=== PATIENT | female | born 1985 | race Caucasian/White ===

== ENCOUNTER 2022-02-17 12:12 | Emergency (ER) | payer MEDICAID, SELFPAY ==
[2022-02-17 12:21] VITALS: BP 138/89; PULSE 131; RESP 20; TEMP 35.9; O2SAT 97; BMI 56.4
[2022-02-17 14:22] VITALS: PULSE 120; O2SAT 97
--- NOTE | 2022-02-17 14:39 | CRLHL7_ITS ---
For Patients: As a result of the Cures Act, medical imaging exams and procedure reports are released immediately into your electronic medical record. You may view this report before your referring provider. If you have questions, please contact your health care provider. Indication: Fall, Pain Comparison: None available. Technique: AP and lateral views sacrum and coccyx were obtained. Findings: There is no displaced fracture or dislocation. The sacroiliac joints are patent without significant bony ankylosis. The soft tissues are unremarkable. Impression: No acute osseus abnormality. Dictated by Ck Espinosa MD @ 02/17/2022 3:40:01 PM (Electronically Signed)
--- NOTE | 2022-02-17 14:40 | ED.BACK ---
HPI - Back Pain/Injury General Chief Complaint: Back Injury/Pain Stated Complaint: Fell yesterday, lower back/R hip pain Time Seen by Provider: 02/17/22 13:42 History of Present Illness HPI Narrative: This 36-year-old female comes in with injury to her tailbone. Prior to arrival she was stepping down her steps at home. When she reached the landing at the bottom of the steps she slipped fell onto her bottom. She was able to get up and ambulate. She did not have any other injury and did not have loss of consciousness. She complains of severe pain in her tailbone region and some into the left buttocks. She does have a history of chronic back pain and states that she is taking morphine and tramadol. Related Data Home Medications Medication Instructions Recorded Confirmed morphine 15 mg tablet,extended mg PO 02/17/22 release tramadol 50 mg tablet mg 02/17/22 Previous Rx's Medication Instructions Recorded ketorolac 10 mg tablet 10 mg PO Q8H 5 days #15 tabs 02/17/22 Allergies Allergy/AdvReac Type Severity Reaction Status Date / Time No Known Drug Allergies Allergy Verified 02/17/22 12:22 Review of Systems Status of ROS: Reports: 10 or more systems reviewed and unremarkable except as noted in History and below Narrative: Constitutional: No fevers, no weight gain or loss. Eyes: No discharge. No vision changes. HENT: No congestion, no sore throat, no ear pain. Cardiovascular: No chest pain, no palpitations. Respiratory: No shortness of breath, no wheezes, no cough. Gastrointestinal: No abdominal pain, no vomiting, no diarrhea. Genitourinary: No dysuria, no hematuria. Musculoskeletal: Low back pain which is chronic with an acute pain in her tailbone due to recent fall. Skin: No rashes, no pruritis. Neurological: No dizziness, weakness, sensory change, speech change. Endo/Heme/Allergies: No bruising or bleeding. No polydipsia. Pysch: no suicidality, no anxiety, no insomnia. All other systems reviewed and are negative. PFSH PFSH Social History Smoking Status: Former smoker How often do you have a drink containing alcohol: never How often do you have six or more drinks on one occasion: Never AUDIT-C Alcohol total score: 0 Non-prescribed substance use: denies use Exam Narrative: Exam Narrative: Constitutional: Well-developed, well-nourished, no acute distress. HEENT: Normocephalic, atraumatic. Neck: Normal range of motion. Nontender. Supple. Heart: Intact distal pulses. Lungs: No chest discomfort. No wheezes, rhonchi, or rales. Abdomen: Nontender. Back: Decreased range of motion due to pain. Increased pain localized in the region of the coccyx and sacrum. No sign of disability or swelling. Extremities: Normal range of motion. No injury. Skin: Intact. No rash. Warm. No erythema or pallor. Neurologic: No altered sensation. No weakness. Alert and oriented. Psychiatric: No suicidality. No anxiety or depression. No insomnia. Nursing notes and vitals signs are reviewed. Const: Vital Signs, click to edit/add: Vital Signs - 24 hr 02/17/22 12:21 02/17/22 14:22 02/17/22 15:10 Temperature 96.7 F L Pulse Rate [Right Pulse Oximeter] 131 H 120 H 104 H Respiratory Rate 20 36 H Blood Pressure [Ri ght Upper Arm] 138/89 Pulse Oximetry 97 97 Oxygen Delivery Me thod Room Air Room Air Course Vital Signs Vital signs: Initial Vital Signs Temperature 96.7 F L 02/17/22 12:21 Temperature Source Temporal Artery Scan 02/17/22 12:21 Pulse Rate 131 H 02/17/22 12:21 Respiratory Rate 20 02/17/22 12:21 Blood Pressure 138/89 02/17/22 12:21 Blood Pressure Mean 105 02/17/22 12:21 Blood Pressure Position Sitting 02/17/22 12:21 Pulse Oximetry 97 02/17/22 12:21 Oxygen Delivery Method 02/17/22 12:21 Vital Signs Temperature 96.7 F L 02/17/22 12:21 Pulse Rate 131 H 02/17/22 12:21 Respiratory Rate 20 02/17/22 12:21 Blood Pressure 138/89 02/17/22 12:21 Pulse Oximetry 97 02/17/22 12:21 Oxygen Delivery Method 02/17/22 12:21 Temperature 96.7 F L 02/17/22 12:21 Pulse Rate 104 H 02/17/22 15:10 Respiratory Rate 36 H 02/17/22 15:10 Blood Pressure 138/89 02/17/22 12:21 Pulse Oximetry 97 01/12/23 14:22 Oxygen Delivery Method 02/17/22 14:22 MDM - Back Pain/Injury MDM Narrative Medical decision making narrative: This patient comes in with pain in her tailbone area after a fall that occurred prior to arrival. X-ray images show no acute findings by my review. Radiology report is pending. The patient received an intramuscular injection of Toradol 30 mg. Prescription for 15 tablets of this same medicine is prescribed for her. She is okay to be discharged home. Imaging Data XR Coccyx/Sacrum: My impression: No of evidence of acute osseous injury. Discharge Plan Discharge Clinical Impression: Coccygeal contusion Patient Disposition: Home, Self-Care Condition: Unchanged Additional Instructions: Continue home medications and take prescribed medication as needed and indicated. Increase activity as tolerated. Follow up with MD or return if worsening. Prescriptions: New ketorolac 10 mg tablet 10 mg PO Q8H 5 Days Qty: 15 0RF No Action tramadol 50 mg tablet morphine 15 mg tablet extended release PO Follow Up/Referrals: Provider,Not a Local [Primary Care Provider] - Stand Alone Forms: My[facility] Info Instructions
[2022-02-17] MEDS: KETOROLAC 30 MG/ML inj IM (15:09)
[2022-02-17 15:10] VITALS: PULSE 104; RESP 36
== END 2022-02-17 15:42 | disposition home or self-care (01) ==
PROVIDERS: Emergency Provider Emergency Medicine Emergency Medical Services
DX: S30.0XXA Contusion of lower back and pelvis, initial encounter (principal); W10.9XXA Fall (on) (from) unspecified stairs and steps, initial encounter; Y92.019 Unspecified place in single-family (private) house as the place of occurrence of the external cause
CPT/HCPCS: 72220; 96372; 96374; 99284; J1885

== ENCOUNTER 2022-09-02 07:12 | Emergency (ER) | payer MEDICAID, SELFPAY ==
[2022-09-02 07:24] VITALS: BP 146/98; PULSE 120; RESP 20; TEMP 35.9; O2SAT 97; BMI 56.4
--- NOTE | 2022-09-02 08:12 | ED.GENADULT ---
HPI - General Adult General Date Seen: 09/02/22 Chief complaint: Skin/Abscess/Foreign Body Stated complaint: hot blue/black kelli on stomach Time Seen by Provider: 09/02/22 07:44 Source: patient Mode of arrival: ambulatory Limitations: no limitations History of Present Illness HPI narrative: Patient is a 36-year-old female comes in with complaints of fever that began last evening. She has a tender area on her lower abdomen that she can feel but cannot see. There has been no bleeding or drainage. She denies any injury. She does have a dog jumps up on her lap and believes that she might have been scratched. She denies any chronic health problems other than chronic back pain. She does not have a local doctor. 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 She does have a dog and a cat. The area on her abdomen that is tender she believes just started yesterday although on exam it has clearly been there much longer. She denies any history of MRSA or previous skin infections. She has been eating and drinking well. She does not use any assistive device to walk. No nausea vomiting diarrhea. No recent antibiotic use. No medication allergies. Related Data Home Medications Medication Instructions Recorded Confirmed morphine 15 mg tablet,extended 15 mg PO Q8H 02/17/22 09/02/22 release tramadol 50 mg tablet 50 mg PO Q6H 02/17/22 09/02/22 ketorolac 10 mg tablet 10 mg PO Q6H 09/02/22 09/02/22 Allergies Allergy/AdvReac Type Severity Reaction Status Date / Time No Known Drug Allergies Allergy Verified 09/02/22 07:24 Review of Systems Narrative: She takes morphine and tramadol for her chronic back pain. She does not have a local physician. Review of systems is outlined above otherwise noted to be negative. PFSH PFSH Social History Smoking Status: Former smoker Second hand tobacco smoke exposure: No How often do you have a drink containing alcohol: never How often do you have six or more drinks on one occasion: Never AUDIT-C Alcohol total score: 0 Non-prescribed substance use: denies use service: No Exam Narrative: Exam Narrative: Vitals noted. HEENT: Conjunctiva clear. Tympanic membranes are pearly white bilaterally. Posterior pharynx is clear without erythema or exudate. She is missing numerous teeth. Neck is supple without adenopathy, thyromegaly, carotid bruit. Lungs: Clear to auscultation in all araujo. No wheezes, rales, rhonchi. Heart: Regular rate and rhythm without murmur. Abdomen: Morbidly obese, Soft and nontender with the exception of the infected area. No guarding, rigidity, rebound. Bowel sounds are normal. No palpable masses. Extremities: No cyanosis or edema. Good distal pulses. Skin: There is a large area of warmth, redness, induration of her pannus. She has difficulty seeing the discoloration due to the size of her abdomen. There is purple discoloration at the center of this infection. She does have some old scratches above this area but no open areas within the infection. There is nothing that feels fluctuant but exam is challenging due to her size. Neurologic: Awake, alert, fully oriented. Neurologic exam is nonfocal. Const: Vital Signs, click to edit/add: Vital Signs - 24 hr 09/02/22 07:24 Temperature 96.7 F L Pulse Rate [Pulse Oximeter] 120 H Respiratory Rate 20 Blood Pressure [Ri t Upper Arm] 146/98 H Pulse Oximetry 97 Oxygen Delivery Me thod Room Air Course Course Hospital Course: Patient seen and examined. CBC, BMP, lactate, blood cultures, CRP are ordered. After blood cultures are drawn she is given Rocephin 2 g IV. Care is turned over to Dr. Mata. Vital Signs Vital signs: Initial Vital Signs Temperature 96.7 F L 09/02/22 07:24 Temperature Source Temporal Artery Scan 09/02/22 07:24 Pulse Rate 120 H 09/02/22 07:24 Respiratory Rate 20 09/02/22 07:24 Blood Pressure 146/98 H 09/02/22 07:24 Blood Pressure Mean 114 H 09/02/22 07:24 Blood Pressure Position Sitting 09/02/22 07:24 Pulse Oximetry 97 09/02/22 07:24 Oxygen Delivery Method Room Air 09/02/22 07:24 Vital Signs Temperature 96.7 F L 09/02/22 07:24 Pulse Rate 120 H 09/02/22 07:24 Respiratory Rate 20 09/02/22 07:24 Blood Pressure 146/98 H 09/02/22 07:24 Pulse Oximetry 97 09/02/22 07:24 Oxygen Delivery Method Room Air 09/02/22 07:24 Temperature 96.7 F L 09/02/22 07:24 Pulse Rate 120 H 09/02/22 07:24 Respiratory Rate 20 09/02/22 07:24 Blood Pressure 146/98 H 09/02/22 07:24 Pulse Oximetry 97 09/02/22 07:24 Oxygen Delivery Method Room Air 09/02/22 07:24 Discharge Plan Discharge Prescriptions: No Action tramadol 50 mg tablet 50 mg PO Q6H morphine 15 mg tablet extended release 15 mg PO Q8H ketorolac 10 mg tablet 10 mg PO Q6H Follow Up/Referrals: Provider,Not a Local [Primary Care Provider] -
[2022-09-02 08:17] LABS: Lactate* 1.2 mmol/L (0.5-1.9)
[2022-09-02 08:19] LABS: Basophils Absolute Auto 0.03 K/uL (0.00-0.30); Basophils Percent Auto 0.4 % (0.0-3.0); Eosinophils Absolute Auto 0.11 K/uL (0.00-0.50); Eosinophils Percent Auto 1.3 % (0.0-7.0); Hematocrit 45.8 % (33.0-51.0); Hemoglobin* 15.2 gm/dL (12.0-16.0); Immature Granulocytes Abs Auto 0.02 K/uL (0.00-0.30); Immature Granulocytes Pct Auto 0.2 %; Lymphocytes Percent Auto 19.8 % (20-44); Mean Corpuscular HGB Conc 33 gm/dL (32-36); Mean Corpuscular Hemoglobin 28 pg (26-34); Mean Corpuscular Volume 85 fL (80-100); Neutrophils Absolute Auto 5.61 K/uL (1.7-7.0); Neutrophils Percent Auto 68.3 % (42.0-72.0); Platelet Count* 239 K/uL (140-440); RDW Coefficient of Variation % 12.2 % (11.5-15.5); Red Blood Count 5.37 m/uL (4.00-5.20); White Blood Count* 8.22 K/uL (4.50-11.00)
[2022-09-02 08:21] LABS: Slide Review Reflex No
--- NOTE | 2022-09-02 08:32 | ED.NURSE ---
Lab in with patient for draw of second blood culture.
[2022-09-02 08:33] LABS: Chloride* 95 mmol/L (96-114); Sodium* 132 mmol/L (135-149)
[2022-09-02 08:36] LABS: Creatinine* 0.5 mg/dL (0.5-1.5); Est. Creatinine Clearance* 149.81; Estimated Glomerular Filt Rate 124 ml/min
[2022-09-02 08:37] LABS: Blood Urea Nitrogen* 8 mg/dL (5-24); Calcium* 8.9 mg/dL (8.4-10.6); Carbon Dioxide* 30 mmol/L (20-32); Glucose* 308 mg/dL (60-115)
[2022-09-02] MEDS: 0.9 % SODIUM CHLORIDE 1000 ml 1,000 ML IV (08:38)
[2022-09-02] MEDS: cefTRIAXone 2 GM in 0.9 % SODIUM CHLORIDE Mini-bag 100 ML IVPB (08:39)
[2022-09-02 08:43] VITALS: BP 142/98; PULSE 94; RESP 18; TEMP 35.6; O2SAT 96
[2022-09-02 08:57] LABS: C Reactive Protein* 18.4 mg/dL (0.5-1.0)
--- NOTE | 2022-09-02 09:02 | CRLHL7_ITS ---
For Patients: As a result of the Cures Act, medical imaging exams and procedure reports are released immediately into your electronic medical record. You may view this report before your referring provider. If you have questions, please contact your health care provider. Indication: LARGE RED PALPABLE LUMP/SWELLING, ?HEMATOMA VS ABSCESS VS OTHER Technique: Grayscale and color Doppler ultrasound of the right lower abdominal wall. Comparison: None Findings: There is a complex hypoechoic fluid collection within the right lower quadrant subcutaneous fat measuring approximately 8.5 x 5.4 x 7.5 cm. No internal vascularity. Impression: Right lower quadrant abdominal wall subcutaneous abscess measuring approximately 8.5 cm. Dictated by Anil Champion MD @ 09/02/2022 9:44:18 AM (Electronically Signed)
--- NOTE | 2022-09-02 09:10 | ED.NURSE ---
Patient to radiology for ultrasound, ambulatory.
[2022-09-02 10:43] VITALS: BP 116/77; PULSE 88; RESP 18; TEMP 36; O2SAT 97
--- NOTE | 2022-09-02 11:18 | ED_ITS ---
HPI - General Adult General Chief complaint: Skin/Abscess/Foreign Body Stated complaint: hot blue/black kelli on stomach Time Seen by Provider: 09/02/22 07:44 Source: patient Mode of arrival: ambulatory Limitations: no limitations Related Data Home Medications Medication Instructions Recorded Confirmed morphine 15 mg tablet,extended 15 mg PO Q8H 02/17/22 09/02/22 release tramadol 50 mg tablet 50 mg PO Q6H 02/17/22 09/02/22 Allergies Allergy/AdvReac Type Severity Reaction Status Date / Time No Known Drug Allergies Allergy Verified 09/02/22 07:24 [facility] Medical History (Updated 09/02/22 @ 12:55 by Haile Guy MD) Abdominal wall hernia ?K43.9 - Ventral hernia without obstruction or gangrene (ICD-10) Sleep apnea ?G47.30 - Sleep apnea, unspecified (ICD-10) Dental decay ?K02.9 - Dental caries, unspecified (ICD-10) Newly diagnosed diabetes ?E11.9 - Type 2 diabetes mellitus without complications (ICD-10) Opioid use ?F11.90 - Opioid use, unspecified, uncomplicated (ICD-10) Chronic back pain ?M54.9 - Dorsalgia, unspecified (ICD-10) ?G89.29 - Other chronic pain (ICD-10) Surgical History S/P cholecystectomy ?Z90.49 - Acquired absence of other specified parts of digestive tract (ICD- 10) History of back surgery ?Z98.890 - Other specified postprocedural states (ICD-10) S/P section ?Z98.891 - History of uterine scar from previous surgery (ICD-10) Social History (Updated 09/02/22 @ 12:44 by Haile Guy MD) Narrative: She lives at home with her 2 children, 1 age 12 and one 18. She is not currently working outside the home. Code status is full. Healthcare power of mail weigher would be her sister Maria L living in [place], [place]. She is a former smoker. She does not drink alcohol. She does not use recreational drugs. Smoking Status: Former smoker Second hand tobacco smoke exposure: No How often do you have a drink containing alcohol: never How often do you have six or more drinks on one occasion: Never AUDIT-C Alcohol total score: 0 Non-prescribed substance use: denies use service: No Exam Const: Vital Signs, click to edit/add: Vital Signs - 24 hr 09/02/22 07:24 09/02/22 08:43 09/02/22 10:43 Temperature 96.7 F L 96.1 F L 96.8 F L Pulse Rate [Pulse Oximeter] 120 H 94 88 Respiratory Rate 20 18 18 Blood Pressure [Ri ght Upper Arm] 146/98 H 142/98 H 116/77 Pulse Oximetry 97 96 97 Oxygen Delivery Me thod Room Air Room Air Room Air Course Course Hospital Course: Patient seen and examined. CBC, BMP, lactate, blood cultures, CRP are ordered. After blood cultures are drawn she is given Rocephin 2 g IV. Care is turned over to Dr. Mata. Vital Signs Vital signs: Initial Vital Signs Temperature 96.7 F L 09/02/22 07:24 Temperature Source Temporal Artery Scan 09/02/22 07:24 Pulse Rate 120 H 09/02/22 07:24 Respiratory Rate 20 09/02/22 07:24 Blood Pressure 146/98 H 09/02/22 07:24 Blood Pressure Mean 114 H 09/02/22 07:24 Blood Pressure Position Sitting 09/02/22 07:24 Pulse Oximetry 97 09/02/22 07:24 Oxygen Delivery Method Room Air 09/02/22 07:24 Vital Signs Temperature 96.7 F L 09/02/22 07:24 Pulse Rate 120 H 09/02/22 07:24 Respiratory Rate 20 09/02/22 07:24 Blood Pressure 146/98 H 09/02/22 07:24 Pulse Oximetry 97 09/02/22 07:24 Oxygen Delivery Method Room Air 09/02/22 07:24 Temperature 96.4 F L 09/02/22 19:01 Pulse Rate 85 09/02/22 19:01 Respiratory Rate 18 09/02/22 19:01 Blood Pressure 112/67 09/02/22 19:01 Pulse Oximetry 97 09/02/22 19:01 Oxygen Delivery Method Room Air 09/02/22 16:00 Medical Decision Making Lab Data Labs: Lab Results 09/02/22 Range/Units 08:05 WBC 8.22 (4.50-11.00) K/uL RBC 5.37 H (4.00-5.20) m/uL Hgb 15.2 (12.0-16.0) gm/dL Hct 45.8 (33.0-51.0) % MCV 85 (80-100) fL MCH 28 (26-34) pg MCHC 33 (32-36) gm/dL RDW Coeff of Sandro 12.2 (11.5-15.5) % Plt Count 239 (140-440) K/uL Neut % (Auto) 68.3 (42.0-72.0) % Lymph % (Auto) 19.8 L (20-44) % Jessamine % (Auto) 10.0 (0.0-11.0) % Eos % (Auto) 1.3 (0.0-7.0) % Baso % (Auto) 0.4 (0.0-3.0) % Neut # (Auto) 5.61 (1.7-7.0) K/uL Lymph # (Auto) 1.60 (0.90-2.90) K/uL Jessamine # (Auto) 0.80 (0.00-0.90) K/UL Eos # (Auto) 0.11 (0.00-0.50) K/uL Baso # (Auto) 0.03 (0.00-0.30) K/uL Abs Immat Gran (auto) 0.02 (0.00-0.30) K/uL Imm/Tot Granulo (auto) 0.2 % Sodium 132 L (135-149) mmol/L Potassium 4.0 (3.6-5.1) mmol/L Chloride 95 L (96-114) mmol/L Carbon Dioxide 30 (20-32) mmol/L BUN 8 (5-24) mg/dL Creatinine 0.5 (0.5-1.5) mg/dL Estimated Creat Clear 149.81 Estimated GFR 124 ml/min Glucose 308 H (60-115) mg/dL Lactate 1.2 (0.5-1.9) mmol/L Calcium 8.9 (8.4-10.6) mg/dL C-Reactive Protein 18.4 H (0.5-1.0) mg/dL Discharge Plan Discharge Clinical Impression: Abscess of skin or subcutaneous tissue, Cellulitis, Newly diagnosed diabetes Patient Disposition: Xfer Other Discharge Location: [facility] Condition: Stable Prescriptions: No Action tramadol 50 mg tablet 50 mg PO Q6H morphine 15 mg tablet extended release 15 mg PO Q8H Stand Alone Forms: [facility] Info Instructions
--- NOTE | 2022-09-02 11:46 | PM.GSCN ---
History of Present Illness Consult details Date Seen: 09/02/22 Consult date: 09/02/22 Narrative: The patient is a 36-year-old female who presents to the ER today with abdominal pain. States that last night she felt pain in her abdominal wall as well as a fever. She came in to be seen. She was found to have an abscess. She thinks that she might have been scratched by her dog or her CT but is not sure. She has never had anything like this previously. She denies any other symptoms such as chest pain, shortness of breath, diarrhea. She has chronic back pain for which she takes MS Contin and tramadol. She last ate yesterday but has had water this morning. Ultrasound showed a subcutaneous abscess. [facility] Medical History (Updated 09/02/22 @ 12:55 by Haile Guy MD) Abdominal wall hernia ?K43.9 - Ventral hernia without obstruction or gangrene (ICD-10) Sleep apnea ?G47.30 - Sleep apnea, unspecified (ICD-10) Dental decay ?K02.9 - Dental caries, unspecified (ICD-10) Newly diagnosed diabetes ?E11.9 - Type 2 diabetes mellitus without complications (ICD-10) Opioid use ?F11.90 - Opioid use, unspecified, uncomplicated (ICD-10) Chronic back pain ?M54.9 - Dorsalgia, unspecified (ICD-10) ?G89.29 - Other chronic pain (ICD-10) Surgical History S/P cholecystectomy ?Z90.49 - Acquired absence of other specified parts of digestive tract (ICD-10) History of back surgery ?Z98.890 - Other specified postprocedural states (ICD-10) S/P section ?Z98.891 - History of uterine scar from previous surgery (ICD-10) Social History (Updated 09/02/22 @ 12:44 by Haile Guy MD) Narrative: She lives at home with her 2 children, 1 age 12 and one 18. She is not currently working outside the home. Code status is full. Healthcare power of speech language pathologist assistant would be her sister Maria L living in [place], [place]. She is a former smoker. She does not drink alcohol. She does not use recreational drugs. Smoking Status: Former smoker Second hand tobacco smoke exposure: No How often do you have a drink containing alcohol: never How often do you have six or more drinks on one occasion: Never AUDIT-C Alcohol total score: 0 Non-prescribed substance use: denies use service: No Meds Home Medications and Allergies Home Medications Medication Instructions Recorded Confirmed Type morphine 15 mg tablet,extended 15 mg PO Q8H 02/17/22 09/02/22 History release tramadol 50 mg tablet 50 mg PO Q6H 02/17/22 09/02/22 History Allergies Allergy/AdvReac Type Severity Reaction Status Date / Time No Known Drug Allergies Allergy Verified 09/02/22 07:24 Exam Narrative: Exam Narrative: General appearance: Alert, cooperative, and in no distress Eyes: PERRLA, eye lids clear, and sclera white HENT Head: Normocephalic Ears: External ears normal Pulmonary: Breathing nonlabored on room air Cardiovascular Heart: Regular rate Gastrointestinal Abdominal: Abdomen with scars consistent with surgical history. Obese. Cellulitis extending across most of pannus. Large area of ecchymosis noted approximately 10 x 10 cm on the right lower pannus. She has a larger area of scabbing that measures approximately 7 cm x 1 cm. This is superior. Skin: Normal skin color, texture, and turgor. Neurologic: No focal deficits Psychiatric: Alert, oriented, cooperative, normal affect. Const: Vital Signs, click to edit/add: Vital Signs - 24 hr 09/02/22 07:24 09/02/22 08:43 09/02/22 10:43 Temperature 96.7 F L 96.1 F L 96.8 F L Pulse Rate [Pulse Oximeter] 120 H 94 88 Respiratory Rate 20 18 18 Blood Pressure [Ri ght Upper Arm] 146/98 H 142/98 H 116/77 Pulse Oximetry 97 96 97 Oxygen Delivery Me thod Room Air Room Air Room Air Results Labs Labs: Abnormal lab results 09/02/22 Range/Units 08:05 RBC 5.37 H (4.00-5.20) m/uL Lymph % (Auto) 19.8 L (20-44) % Sodium 132 L (135-149) mmol/L Chloride 95 L (96-114) mmol/L Glucose 308 H (60-115) mg/dL C-Reactive Protein 18.4 H (0.5-1.0) mg/dL Diabetes panel 09/02/22 Range/Units 08:05 Sodium 132 L (135-149) mmol/L Potassium 4.0 (3.6-5.1) mmol/L Chloride 95 L (96-114) mmol/L Carbon Dioxide 30 (20-32) mmol/L BUN 8 (5-24) mg/dL Creatinine 0.5 (0.5-1.5) mg/dL Glucose 308 H (60-115) mg/dL Calcium 8.9 (8.4-10.6) mg/dL Calcium panel 09/02/22 Range/Units 08:05 Calcium 8.9 (8.4-10.6) mg/dL Pituitary panel 09/02/22 Range/Units 08:05 Sodium 132 L (135-149) mmol/L Potassium 4.0 (3.6-5.1) mmol/L Chloride 95 L (96-114) mmol/L Carbon Dioxide 30 (20-32) mmol/L BUN 8 (5-24) mg/dL Creatinine 0.5 (0.5-1.5) mg/dL Glucose 308 H (60-115) mg/dL Calcium 8.9 (8.4-10.6) mg/dL Adrenal panel 09/02/22 Range/Units 08:05 Sodium 132 L (135-149) mmol/L Potassium 4.0 (3.6-5.1) mmol/L Chloride 95 L (96-114) mmol/L Carbon Dioxide 30 (20-32) mmol/L BUN 8 (5-24) mg/dL Creatinine 0.5 (0.5-1.5) mg/dL Glucose 308 H (60-115) mg/dL Calcium 8.9 (8.4-10.6) mg/dL All other labs normal. Imaging CT scan - pelvis: report reviewed and image reviewed Abdominal ultrasound report/results: report reviewed and image reviewed Additional studies: CT scan abdomen/pelvis 09/02/22 FINDINGS: The liver is normal in size with hepatic steatosis. Status post cholecystectomy. No biliary duct dilation. The spleen, adrenal glands and pancreas are within normal limits. Kidneys enhance symmetrically. Right midpole renal cyst measured 2 cm. No hydronephrosis. Unremarkable appearing bladder. No evidence of bowel obstruction. The appendix is not discretely visualized. [id number] go Large right lower abdominal wall hernia which contains a large amount of mesenteric fat, small bowel, and colon. There is no evidence of bowel obstruction or inflammation within the hernia sac. There is however overlying the hernia sac within the soft tissues a fluid collection which measures 7.9 x 5.1 x 6.0 cm. No discrete rim enhancement. There is extensive surrounding soft tissue inflammation and overlying skin thickening. No significant free fluid and no free air. Pelvic organs are unremarkable. Age indeterminate T12 compression deformity. Moderate intervertebral disc space narrowing at L3-4. Bulky anterior osteophytosis of the visualized lower thoracic spine with partial visualization of lower thoracic posterior spinal fusion. The lower chest is unremarkable. IMPRESSION: Large right lower abdominal wall hernia which contains a large amount of mesenteric fat, small bowel, and colon. There is no evidence of bowel obstruction or inflammation within the hernia sac. Overlying the hernia sac within the soft tissues of the right lower abdominal wall there is a fluid collection which measures 7.9 x 5.1 x 6.0 cm. No discrete rim enhancement. There is extensive surrounding soft tissue inflammation and overlying skin thickening. Given there is no discrete rim enhancement finding is suspicious for phlegmon although developing abscess is suspected. Surrounding inflammation and skin thickening likely related to cellulitis. Age indeterminate T12 compression deformity. Please note that all CT scans at this facility use dose modulation, iterative reconstruction, and/or weight-based dosing when appropriate to reduce radiation dose to as low as reasonably achievable. Dictated by William Bojorquez MD @ 09/02/2022 1:58:14 PM US soft tissue/abdomen Indication: LARGE RED PALPABLE LUMP/SWELLING, ?HEMATOMA VS ABSCESS VS OTHER Technique: Grayscale and color Doppler ultrasound of the right lower abdominal wall. Comparison: None Findings: There is a complex hypoechoic fluid collection within the right lower quadrant subcutaneous fat measuring approximately 8.5 x 5.4 x 7.5 cm. No internal vascularity. Impression: Right lower quadrant abdominal wall subcutaneous abscess measuring approximately 8.5 cm. Dictated by Anil Champion MD @ 09/02/2022 9:44:18 AM Assessment and Plan Assessment and plan (1) Abdominal wall hernia: Problem comment: Surgery consult Status: Acute (2) Newly diagnosed diabetes: Problem comment: Hemoglobin A1c, check blood sugars Status: Acute (3) Abscess of skin or subcutaneous tissue: Problem comment: Skin appears to have infection. Consult surgery. Likely cellulitis versus abscess. Ultrasound suggests abscess but this may be intra-abdominal bowel with a hernia Status: Acute (4) Cellulitis: Status: Acute Plan The patient is 36-year-old female with newly diagnosed diabetes, morbid obesity and a subcutaneous abscess extending down and abutting a very large abdominal wall hernia. Initially after seeing the ultrasound, I recommended surgical debridement given that the overlying skin is ischemic appearing, however CT scan done to rule out a necrotizing infection showed that the abscess extends down to her abdominal wall hernia. I think given her habitus and the size of the hernia, simply I&D of the wound could lead to a very complex surgical situation, almost patrick to an open abdomen which we would not be capable of managing here. I recommended transfer to a tertiary center where they may be able to manage the abscess in a different manner, such as with an IR drain and skin debridement only if the patient does not improve. Fortunately she was accepted at [facility] and will transfer there for further care.
--- NOTE | 2022-09-02 12:12 | CRLHL7_ITS ---
For Patients: As a result of the Century Cures Act, medical imaging exams and procedure reports are released immediately into your electronic medical record. You may view this report before your referring provider. If you have questions, please contact your health care provider. INDICATION: ABCESS, LOWER ABD RT SIDE TECHNIQUE: CT abdomen and pelvis with 150 cc Omnipaque 370 IV contrast. COMPARISON: Same day ultrasound. FINDINGS: The liver is normal in size with hepatic steatosis. Status post cholecystectomy. No biliary duct dilation. The spleen, adrenal glands and pancreas are within normal limits. Kidneys enhance symmetrically. Right midpole renal cyst measured 2 cm. No hydronephrosis. Unremarkable appearing bladder. No evidence of bowel obstruction. The appendix is not discretely visualized. [id number] go Large right lower abdominal wall hernia which contains a large amount of mesenteric fat, small bowel, and colon. There is no evidence of bowel obstruction or inflammation within the hernia sac. There is however overlying the hernia sac within the soft tissues a fluid collection which measures 7.9 x 5.1 x 6.0 cm. No discrete rim enhancement. There is extensive surrounding soft tissue inflammation and overlying skin thickening. No significant free fluid and no free air. Pelvic organs are unremarkable. Age indeterminate T12 compression deformity. Moderate intervertebral disc space narrowing at L3-4. Bulky anterior osteophytosis of the visualized lower thoracic spine with partial visualization of lower thoracic posterior spinal fusion. The lower chest is unremarkable. IMPRESSION: Large right lower abdominal wall hernia which contains a large amount of mesenteric fat, small bowel, and colon. There is no evidence of bowel obstruction or inflammation within the hernia sac. Overlying the hernia sac within the soft tissues of the right lower abdominal wall there is a fluid collection which measures 7.9 x 5.1 x 6.0 cm. No discrete rim enhancement. There is extensive surrounding soft tissue inflammation and overlying skin thickening. Given there is no discrete rim enhancement finding is suspicious for phlegmon although developing abscess is suspected. Surrounding inflammation and skin thickening likely related to cellulitis. Age indeterminate T12 compression deformity. Please note that all CT scans at this facility use dose modulation, iterative reconstruction, and/or weight-based dosing when appropriate to reduce radiation dose to as low as reasonably achievable. Dictated by William Bojorquez MD @ 09/02/2022 1:58:14 PM (Electronically Signed)
--- NOTE | 2022-09-02 12:33 | P.IMHP_ITS ---
Hospitalist- H&P: HPI History of Present Illness Date Seen: 09/02/22 Chief complaint: hot blue/black kelli on stomach Narrative: Argelia Bedoya is a 36 year old female with obesity presents with onset of abdominal pain and fever and redness in her abdominal pannus starting last night. Prior to last night she was feeling well and had no pain or fever. She she is not aware of any injury. She does have cats and dogs and does acknowledge that is possible that 1 of them scratched her in this area. She has chronic back pain and is on chronic opioid therapy with MS Contin 15 mg 3 times a day and tramadol 50 mg every 4 hours. She has been diagnosed with sleep apnea in her medical record but she tells me she does not have sleep apnea and has never been prescribed CPAP. Review of Systems Narrative: She reports she has been generally doing well until last night. No other recent trauma or illness. No previous history with problems with anesthesia, bleeding disorder, clotting problems. [facility] Medical History (Updated 09/02/22 @ 12:55 by Haile Guy MD) Abdominal wall hernia ?K43.9 - Ventral hernia without obstruction or gangrene (ICD-10) Sleep apnea ?G47.30 - Sleep apnea, unspecified (ICD-10) Dental decay ?K02.9 - Dental caries, unspecified (ICD-10) Newly diagnosed diabetes ?E11.9 - Type 2 diabetes mellitus without complications (ICD-10) Opioid use ?F11.90 - Opioid use, unspecified, uncomplicated (ICD-10) Chronic back pain ?M54.9 - Dorsalgia, unspecified (ICD-10) ?G89.29 - Other chronic pain (ICD-10) Surgical History S/P cholecystectomy ?Z90.49 - Acquired absence of other specified parts of digestive tract (ICD- 10) History of back surgery ?Z98.890 - Other specified postprocedural states (ICD-10) S/P section ?Z98.891 - History of uterine scar from previous surgery (ICD-10) Social History (Updated 09/02/22 @ 12:44 by Haile Guy MD) Narrative: She lives at home with her 2 children, 1 age 12 and one 18. She is not currently working outside the home. Code status is full. Healthcare power of electro mechanical technologist would be her sister Maria L living in [place], [place]. She is a former smoker. She does not drink alcohol. She does not use recreational drugs. Smoking Status: Former smoker Second hand tobacco smoke exposure: No How often do you have a drink containing alcohol: never How often do you have six or more drinks on one occasion: Never AUDIT-C Alcohol total score: 0 Non-prescribed substance use: denies use service: No Meds Home Medications and Allergies Home Medications Medication Instructions Recorded Confirmed Type morphine 15 mg tablet,extended 15 mg PO Q8H 02/17/22 09/02/22 History release tramadol 50 mg tablet 50 mg PO Q6H 02/17/22 09/02/22 History Allergies Allergy/AdvReac Type Severity Reaction Status Date / Time No Known Drug Allergies Allergy Verified 09/02/22 07:24 Exam Narrative: Exam Narrative: She is alert appears in no distress. Oropharynx with significant dental decay. Airway is quite small with prominent tongue. Neck is supple without mass or adenopathy. Respirations are clear to auscultation. Cardiovascular: S1, S2, regular rate and rhythm. Abdomen: Bowel sounds are present. Abdomen is soft. She has a large abdominal pannus and just to the right of the midline in her lower abdominal pannus there is an area of purplish discoloration surrounded by large area of erythema. She has mild tenderness with palpation over this area. Just above this area there is a healing skin ulcer, approximately right lateral to the umbilicus. No other obvious open or draining wounds. Lower extremities with trace edema. She has intact pedal pulses. She moves all 4 extremities well. Const: Vital Signs, click to edit/add: Vital Signs - 24 hr 09/02/22 07:24 09/02/22 08:43 09/02/22 10:43 Temperature 96.7 F L 96.1 F L 96.8 F L Pulse Rate [Pulse Oximeter] 120 H 94 88 Respiratory Rate 20 18 18 Blood Pressure [Ri ght Upper Arm] 146/98 H 142/98 H 116/77 Pulse Oximetry 97 96 97 Oxygen Delivery Me thod Room Air Room Air Room Air Documenting provider has reviewed patient's vital signs: yes Hospitalist - H&P: Result Labs Labs: Short CBC 09/02/22 Range/Units 08:05 WBC 8.22 (4.50-11.00) K/uL Hgb 15.2 (12.0-16.0) gm/dL Hct 45.8 (33.0-51.0) % Plt Count 239 (140-440) K/uL [facility] 09/02/22 08:05 Sodium 132 L Potassium 4.0 Chloride 95 L Carbon Dioxide 30 BUN 8 Creatinine 0.5 Glucose 308 H Calcium 8.9 Imaging US - abdomen: Radiologist's impression: Indication: LARGE RED PALPABLE LUMP/SWELLING, ?HEMATOMA VS ABSCESS VS OTHER Technique: Grayscale and color Doppler ultrasound of the right lower abdominal wall. Comparison: None Findings: There is a complex hypoechoic fluid collection within the right lower quadrant subcutaneous fat measuring approximately 8.5 x 5.4 x 7.5 cm. No internal vascularity. Impression: Right lower quadrant abdominal wall subcutaneous abscess measuring approximately 8.[address] scan - abdomen: Attestation: I have reviewed the pertinent imaging results. (My initial reading suggests this is a large abdominal hernia with some fat stranding around it.) Assessment and Plan Assessment and plan (1) Abscess of skin or subcutaneous tissue: Problem comment: Skin appears to have infection. Consult surgery. Likely cellulitis versus a bscess. Ultrasound suggests abscess but this may be intra-abdominal bowel with a hernia Status: Acute (2) Abdominal wall hernia: Problem comment: Surgery consult Status: Acute (3) Chronic back pain: Problem comment: On chronic opioid therapy Status: Acute Assessment and Plan: At risk for hypoventilation. (4) Newly diagnosed diabetes: Problem comment: Hemoglobin A1c, check blood sugars Status: Acute (5) Dental decay: Status: Acute (6) Sleep apnea: Problem comment: Monitor for hypoventilation. CPAP or BiPAP as needed Status: Acute Plan Pending surgical consultation will admit. If she needs surgery will probably leyva ve to be transferred. If this can be treated medically with antibiotics will admit here. Further consultation with surgery and Radiology pending Total time spent today is 80 minutes, 50 minutes in coordination of care and discussing with patient and other providers ongoing evaluation management of abdominal wall infection and hernia
[2022-09-02 16:00] VITALS: BP 135/85; PULSE 96; RESP 18; TEMP 38.6; O2SAT 95
[2022-09-02 16:14] VITALS: TEMP 38.6
[2022-09-02] MEDS: PIPERACILLIN/TAZOBACTAM 3.375 GM in 0.9 % SODIUM CHLORIDE Mini-bag 100 ML IVPB (16:14)
[2022-09-02] MEDS: ACETAMINOPHEN 500 MG TABLET 1000 MG PO (16:14)
--- NOTE | 2022-09-02 18:57 | ED.NURSE ---
Report to Araceli Nelson RN who now assumes care of patient.
[2022-09-02 19:01] VITALS: BP 112/67; PULSE 85; RESP 18; TEMP 35.8; O2SAT 97
--- NOTE | 2022-09-02 19:37 | ED.NURSE ---
Dr. Wells gave approval for pt to take her own supply of Morphine 15 mg tablet PO, one tablet; and Tramadol 50 mg tablet, one tablet PO. This financial writer verified medication labels and dosages on pt's home prescription bottles. This financial writer then witnessed pt take appropriate amount of medication with sip of water.
--- NOTE | 2022-09-02 20:20 | ED.NURSE ---
Report called to RN at [facility]. All questions answered. EMS called with request for transport. Pt to be transported to Station [address], room 807 at [facility].
[2022-09-02] MEDS: HYDROmorphone 0.5 mg/0.5 ml inj 1 MG IVP (20:50)
== END 2022-09-02 20:45 | disposition other institution (70) ==
PROVIDERS: Family Medicine; Emergency Provider Family Medicine
DX: L02.211 Cutaneous abscess of abdominal wall (principal); K46.0 Unspecified abdominal hernia with obstruction, without gangrene
CPT/HCPCS: 36415; 74177; 76705; 80048; 83605; 85025; 86140; 87040; 96365; 96366; 96375; 99282; 99285; A9270; J0696; J1170; J2543; J3370; J7030; J7120; Q9967

== ENCOUNTER 2022-09-02 20:37 | Outpatient (CLI) | payer MEDICAID, SELFPAY | END 2022-09-02 20:38 | disposition home or self-care (01) | LOC: AMB 09-05 13:58 | PROVIDERS: Visit Provider Internal Medicine | DX: R10.9 Unspecified abdominal pain (principal); R50.9 Fever, unspecified | CPT/HCPCS: A0425; A0428 ==

== ENCOUNTER 2023-05-05 17:06 | Emergency (ER) | payer MEDICAID, SELFPAY ==
[2023-05-05 17:17] VITALS: BP 148/96; PULSE 93; RESP 18; TEMP 35.9; O2SAT 99; BMI 45.8
--- NOTE | 2023-05-05 19:17 | CT_ITS ---
Patient: JEAN-PIERRE ARCE Facility:?[facility] Patient ID:?[id number] Site Patient ID:?[id number]. Site :?[id number] Study:?CT-Abdomen/Pelvis W/O-05/05/2023 8:46:58 PM Ordering Physician:CECE Final Report: INDICATION: Right flank and lower abdominal pain. TECHNIQUE: Multiplanar CT examination of the abdomen and pelvis was performed without administration of intravenous contrast. COMPARISON: None. FINDINGS: Lower chest: No focal consolidation. Normal heart size. No pleural effusions or pneumothorax. Linear band like opacification of the lung bases likely represent subsegmental atelectasis and/or scarring. Liver: Unremarkable. Gallbladder: Cholecystectomy. Biliary: Unremarkable. Pancreas: Within normal limits. Spleen: Unremarkable. Adrenal glands: Unremarkable. Renal/ureters/bladder: The right kidney appears edematous, mild perinephric fat stranding. There is moderate right-sided hydroureteronephrosis to the level of the proximal ureter where there is an obstructing 4 mm urinary calculus. No obstructive uropathy. No hydronephrosis or obstructive urinary calculi. Limited evaluation for renal masses without the use of intravenous contrast. There is ill-defined hypodensity within the right kidney interpolar region, likely a cyst. No left-sided hydronephrosis. The left kidney appears unremarkable. The bladder appears within normal limits. Pelvis: Unremarkable uterus. No adnexal masses. Gastrointestinal: There is herniation of loops of nonobstructive small bowel and a portion of the ascending colon into large right ventrolateral abdominal wall hernia defect. No pneumatosis intestinalis. Normal appendix. Trace colonic diverticulosis. Moderate colonic stool burden. Vasculature: No aortic aneurysm. No significant atherosclerotic calcifications. No portal venous gas. Lymph nodes: No pathologic lymphadenopathy by size criteria. Peritoneum: No free fluid or pneumoperitoneum. No drainable fluid collections. Abdominal wall/soft tissues: Large wide mouth right ventrolateral abdominal wall hernia defect, with defect measuring up to 9.0 cm in transverse dimension. Otherwise, unremarkable. Bones: No acute osseous abnormalities. Multilevel degenerative changes of the thoracolumbar spine. Partially visualized orthopedic hardware of the lower thoracic spine. There is ankylosis of the vertebral bodies of the lower thoracic spine, which can be seen with ankylosing spondylitis. Severe degenerative disc disease at L3-4 and L5-S1. IMPRESSION: 1. Moderate right-sided hydroureteronephrosis to the level of the proximal right ureter where there is an obstructing 4 mm calculus. 2. Large right ventral lateral abdominal wall hernia defect containing loops of nonobstructed small bowel and ascending colon. No bowel obstruction. No pneumatosis intestinalis, portal venous gas or pneumoperitoneum. Please note that all CT scans at this facility use dose modulation, iterative reconstruction, and/or weight-based dosing when appropriate to reduce radiation dose to as low as reasonably achievable. Dictated by Isma Layton MD @ 05/05/2023 9:45:51 PM Signed by:?Isma Layton MD @05/05/2023 9:45:51 PM (Electronic Signature)
--- NOTE | 2023-05-05 19:23 | ED_ITS ---
HPI - General Adult General Chief complaint: Abdominal Pain <Maggi Mata MD - Last Filed: 05/05/23 20:04> Stated complaint: R side stomach pain <Maggi Mata MD - Last Filed: 05/05/23 20:04> Time Seen by Provider: 05/05/23 19:12 <Maggi Mata MD - Last Filed: 05/05/23 20:04> Source: patient <Maggi Mata MD - Last Filed: 05/05/23 20:04> Mode of arrival: ambulatory <Maggi Mata MD - Last Filed: 05/05/23 20:04> Limitations: no limitations <Maggi Mata MD - Last Filed: 05/05/23 20:04> History of Present Illness HPI narrative: 37-year-old female coming in today complaining of back and abdominal pain. Patient states that she was sitting at home when all of a sudden she had sharp right low back pain that radiated around the side into the front of the right abdomen. She describes the pain as a 10/10. The pain was so intense that she started vomiting. She states that she was in her usual state of health until this happened today. She denies any fevers or chills. Nothing makes the pain better or worse. She denies any increased urinary frequency, urgency or dysuria. Bowel movements have been normal. The pain does not radiate down to her legs. Patient's past medical history is complex and significant for morbid obesity, abdominal wall hernia, sleep apnea, dental decay, diabetes, chronic back pain. She takes liraglutide, lisinopril, metformin, morphine and tramadol. <Maggi Mata MD - Last Filed: 05/05/23 20:04> Related Data Home medications: Home Medications Medication Instructions Recorded Confirmed morphine 15 mg tablet,extended 15 mg PO Q8H 02/17/22 05/05/23 release tramadol 50 mg tablet 50 mg PO Q6H 02/17/22 05/05/23 liraglutide 0.6 mg/0.1 mL (18 mg/3 0.6 mg subcut DAILY 05/05/23 05/05/23 mL) subcutaneous pen injector ([employer] Favortoza 2-Marc) lisinopril 2.5 mg tablet 2.5 mg PO DAILY 05/05/23 05/05/23 metformin 1,000 mg tablet 1,000 mg PO BID 05/05/23 05/05/23 Previous Rx's Medication Instructions Recorded tamsulosin 0.4 mg capsule (Flomax) 0.4 mg PO DAILY #30 caps 05/05/23 <Maggi Mata MD - Last Filed: 05/05/23 20:04> Allergies/adverse reactions: Allergies Allergy/AdvReac Type Severity Reaction Status Date / Time No Known Drug Allergies Allergy Verified 09/02/22 07:24 <Maggi Mata MD - Last Filed: 05/05/23 20:04> Review of Systems Status of ROS: Reports: 10 or more systems reviewed and unremarkable except as noted in History and below <Maggi Mata MD - Last Filed: 05/05/23 20:04> [facility] Medical History: Medical History Abdominal wall hernia ?K43.9 - Ventral hernia without obstruction or gangrene (ICD-10) Sleep apnea ?G47.30 - Sleep apnea, unspecified (ICD-10) Dental decay ?K02.9 - Dental caries, unspecified (ICD-10) Newly diagnosed diabetes ?E11.9 - Type 2 diabetes mellitus without complications (ICD-10) Opioid use ?F11.90 - Opioid use, unspecified, uncomplicated (ICD-10) Chronic back pain ?M54.9 - Dorsalgia, unspecified (ICD-10) ?G89.29 - Other chronic pain (ICD-10) <Maggi Mata MD - Last Filed: 05/05/23 20:04> Surgical History: Surgical History S/P cholecystectomy ?Z90.49 - Acquired absence of other specified parts of digestive tract (ICD- 10) History of back surgery ?Z98.890 - Other specified postprocedural states (ICD-10) S/P section ?Z98.891 - History of uterine scar from previous surgery (ICD-10) <Maggi Mata MD - Last Filed: 05/05/23 20:04> Social History: Social History Narrative: She lives at home with her 2 children, 1 age 12 and one 18. She is not currently working outside the home. Code status is full. Healthcare power of trial attorney would be her sister Maria L living in [place], [place]. She is a former smoker. She does not drink alcohol. She does not use recreational drugs. Smoking Status: Former smoker Second hand tobacco smoke exposure: No How often do you have a drink containing alcohol: never How often do you have six or more drinks on one occasion: Never AUDIT-C Alcohol total score: 0 Non-prescribed substance use: denies use service: No <Maggi Mata MD - Last Filed: 05/05/23 20:04> Exam Narrative: Exam Narrative: Morbidly obese, well-developed patient in mild distress. Alert and oriented. Answers questions appropriately. Mood and affect are appropriate. Thoughts are goal oriented and rational. No tangential or magical thinking noted. Patient speaks in full sentences without needing to catch her breath. HEENT: Normocephalic atraumatic. Pupils are equally round reactive to light. Extraocular muscles are intact. Conjunctivae are moist without any icterus noted. Moist mucous membranes. Poor dentition with multiple teeth missing. Cardiovascular: Heart is regular rate and rhythm S1 and S2 are present without any murmurs. Lungs: Clear to auscultation bilaterally no wheezes rhonchi or rales are appreciated. Patient takes deep breaths without any discomfort. Abdomen: Soft and nontender nondistended with normal bowel sounds. No guarding or rebound. And assess for organomegaly secondary to body habitus. Mild CVA tenderness. Discomfort of the paraspinal musculature on the right side distal to the CVA. She does have a sore on the anterior abdominal wall that appears to be healing. Extremities: Bilateral lower extremities are without edema. Skin: Well perfused. <Maggi Mata MD - Last Filed: 05/05/23 20:04> Const: Vital Signs, click to edit/add: Vital Signs - 24 hr 05/05/23 17:17 Temperature 96.7 F L Pulse Rate [Pulse Oximeter] 93 Respiratory Rate 18 Blood Pressure [Ri ght Upper Arm] 148/96 H Pulse Oximetry 99 Oxygen Delivery Me thod Room Air <Maggi Mata MD - Last Filed: 05/05/23 20:04> Vital Signs, click to edit/add: Vital Signs - 24 hr 05/05/23 17:17 Temperature 96.7 F L Pulse Rate [Pulse Oximeter] 93 Respiratory Rate 18 Blood Pressure [Ri ght Upper Arm] 148/96 H Pulse Oximetry 99 Oxygen Delivery Me thod Room Air <Benjamin Bradshaw MD - Last Filed: 05/05/23 22:39> Course Course ED Course: Labs, UA and CT without contrast were ordered. There is a concern for kidney stones. Other differential diagnoses includes musculoskeletal pain. Less likely differential diagnoses includes appendicitis, ectopic . IV is established and patient was given IV fluids, Toradol and Zofran. <Maggi Mata MD - Last Filed: 05/05/23 20:04> Vital Signs Vital signs: Initial Vital Signs Temperature 96.7 F L 05/05/23 17:17 Temperature Source Temporal Artery Scan 05/05/23 17:17 Pulse Rate 93 05/05/23 17:17 Respiratory Rate 18 05/05/23 17:17 Blood Pressure 148/96 H 05/05/23 17:17 Blood Pressure Mean 113 H 05/05/23 17:17 Pulse Oximetry 99 05/05/23 17:17 Oxygen Delivery Method Room Air 05/05/23 17:17 Vital Signs Temperature 96.7 F L 05/05/23 17:17 Pulse Rate 93 05/05/23 17:17 Respiratory Rate 18 05/05/23 17:17 Blood Pressure 148/96 H 05/05/23 17:17 Pulse Oximetry 99 05/05/23 17:17 Oxygen Delivery Method Room Air 05/05/23 17:17 Temperature 96.7 F L 05/05/23 17:17 Pulse Rate 93 05/05/23 17:17 Respiratory Rate 18 05/05/23 17:17 Blood Pressure 148/96 H 05/05/23 17:17 Pulse Oximetry 99 05/05/23 17:17 Oxygen Delivery Method Room Air 05/05/23 17:17 <Maggi Mata MD - Last Filed: 05/05/23 20:04> Initial Vital Signs Temperature 96.7 F L 05/05/23 17:17 Temperature Source Temporal Artery Scan 05/05/23 17:17 Pulse Rate 93 05/05/23 17:17 Respiratory Rate 18 05/05/23 17:17 Blood Pressure 148/96 H 05/05/23 17:17 Blood Pressure Mean 113 H 05/05/23 17:17 Pulse Oximetry 99 05/05/23 17:17 Oxygen Delivery Method Room Air 05/05/23 17:17 Vital Signs Temperature 96.7 F L 05/05/23 17:17 Pulse Rate 93 05/05/23 17:17 Respiratory Rate 18 05/05/23 17:17 Blood Pressure 148/96 H 05/05/23 17:17 Pulse Oximetry 99 05/05/23 17:17 Oxygen Delivery Method Room Air 05/05/23 17:17 Temperature 96.7 F L 05/05/23 17:17 Pulse Rate 93 05/05/23 17:17 Respiratory Rate 18 05/05/23 17:17 Blood Pressure 148/96 H 05/05/23 17:17 Pulse Oximetry 99 05/05/23 17:17 Oxygen Delivery Method Room Air 05/05/23 17:17 <Benjamin Bradshaw MD - Last Filed: 05/05/23 22:39> Medications Administered Medications: Discontinued Medications Generic Name Dose Route Start Last Admin Trade Name Freq PRN Reason Stop Dose Admin Sodium Chloride 1,000 mls @ 1,000 mls/hr 05/05/23 19:30 05/05/23 20:35 0.9 % Sodium Chloride 1000 Ml IV 05/05/23 20:29 Infused .Q1H JONES Infusion Ketorolac Tromethamine 30 mg 05/05/23 19:16 05/05/23 19:50 Ketorolac 30 Mg/Ml Inj IVP 05/05/23 19:17 30 mg ONCE ONE Administration Ondansetron HCl 4 mg 05/05/23 19:16 05/05/23 19:50 Ondansetron 2 Mg/Ml Inj IVP 05/05/23 19:17 4 mg ONCE ONE Administration <Maggi Mata MD - Last Filed: 05/05/23 20:04> Discontinued Medications Generic Name Dose Route Start Last Admin Trade Name Freq PRN Reason Stop Dose Admin Sodium Chloride 1,000 mls @ 1,000 mls/hr 05/05/23 19:30 05/05/23 20:35 0.9 % Sodium Chloride 1000 Ml IV 05/05/23 20:29 Infused .Q1H JONES Infusion Ketorolac Tromethamine 30 mg 05/05/23 19:16 05/05/23 19:50 Ketorolac 30 Mg/Ml Inj IVP 05/05/23 19:17 30 mg ONCE ONE Administration Ondansetron HCl 4 mg 05/05/23 19:16 05/05/23 19:50 Ondansetron 2 Mg/Ml Inj IVP 05/05/23 19:17 4 mg ONCE ONE Administration <Benjamin Bradshaw MD - Last Filed: 05/05/23 22:39> Medical Decision Making MDM Narrative Medical decision making narrative: Patient taken over from my colleague. CT scan shows 4 mm kidney stone on the right consistent with her pain. Also noted is a chronic low huge right- sided ventral hernia. Patient was informed of her CT results. This time she takes tramadol and morphine at home will continue. She is feeling better after IV fluids. I did start her on Flomax at her pharmacy and recommended plenty of rest plenty fluids with outpatient follow-up this coming week. <Benjamin Bradshaw MD - Last Filed: 05/05/23 22:39> Lab Data Labs: Lab Results 05/05/23 05/05/23 Range/Units 19:32 20:13 WBC 9.78 (4.50-11.00) K/uL RBC 4.85 (4.00-5.20) m/uL Hgb 14.2 (12.0-16.0) gm/dL Hct 42.6 (33.0-51.0) % MCV 88 (80-100) fL MCH 29 (26-34) pg MCHC 33 (32-36) gm/dL RDW Coeff of Sandro 13.1 (11.5-15.5) % Plt Count 221 (140-440) K/uL Neut % (Auto) 81.8 H (42.0-72.0) % Lymph % (Auto) 12.1 L (20-44) % [place] % (Auto) 4.9 (0.0-11.0) % Eos % (Auto) 0.8 (0.0-7.0) % Baso % (Auto) 0.2 (0.0-3.0) % Neut # (Auto) 8.00 H (1.7-7.0) K/uL Lymph # (Auto) 1.20 (0.90-2.90) K/uL [place] # (Auto) 0.50 (0.00-0.90) K/UL Eos # (Auto) 0.08 (0.00-0.50) K/uL Baso # (Auto) 0.02 (0.00-0.30) K/uL Abs Immat Gran (auto) 0.02 (0.00-0.30) K/uL Imm/Tot Granulo (auto) 0.2 % Sodium 138 (135-149) mmol/L Potassium 4.0 (3.6-5.1) mmol/L Chloride 107 (96-114) mmol/L Carbon Dioxide 23 (20-32) mmol/L Anion Gap 8 (7-15) mEq/L BUN 14 (5-24) mg/dL Creatinine 0.5 (0.5-1.5) mg/dL Estimated Creat Clear 142.81 Estimated GFR 123 ml/min Glucose 130 H (60-115) mg/dL Lactate 1.0 (0.5-1.9) mmol/L Calcium 9.1 (8.4-10.6) mg/dL Total Bilirubin 0.6 (0.1-1.5) mg/dL Direct Bilirubin 0.2 (0.0-0.5) mg/dL AST 27 (12-35) U/L ALT 23 (4-35) U/L Alkaline Phosphatase 47 (40-150) U/L C-Reactive Protein < 0.5 L (0.5-1.0) mg/dL Total Protein 7.5 (6.0-8.3) g/dL Albumin 4.5 (3.3-5.0) g/dL Urine Color Yellow (Yellow) Urine Appearance Slightly Cloudy A (Clear) Urine pH 6.0 (5.0-8.5) Ur Specific [place] 1.025 (1.000-1.030) Urine Protein 1+ A (Negative) Urine Glucose (UA) Negative (Negative) Urine Ketones Negative (Negative) Urine Blood 3+ A (Negative) Urine Nitrite Negative (Negative) Urine Bilirubin Negative (Negative) Urine Urobilinogen 0.2 (0.2-1.0) Ur Leukocyte Esterase 1+ A (Negative) Urine RBC 5-10 A (0-2) Urine WBC 5-10 A (0-5) Ur Squamous Epith Cells Few (None-Few) Urine Bacteria Few A (None) Urine Yeast Few A (None) Urine HCG, Qual Negative (Negative) <Maggi Mata MD - Last Filed: 05/05/23 20:04> Lab Results 05/05/23 05/05/23 Range/Units 19:32 20:13 WBC 9.78 (4.50-11.00) K/uL RBC 4.85 (4.00-5.20) m/uL Hgb 14.2 (12.0-16.0) gm/dL Hct 42.6 (33.0-51.0) % MCV 88 (80-100) fL MCH 29 (26-34) pg MCHC 33 (32-36) gm/dL RDW Coeff of Sandro 13.1 (11.5-15.5) % Plt Count 221 (140-440) K/uL Neut % (Auto) 81.8 H (42.0-72.0) % Lymph % (Auto) 12.1 L (20-44) % [place] % (Auto) 4.9 (0.0-11.0) % Eos % (Auto) 0.8 (0.0-7.0) % Baso % (Auto) 0.2 (0.0-3.0) % Neut # (Auto) 8.00 H (1.7-7.0) K/uL Lymph # (Auto) 1.20 (0.90-2.90) K/uL [place] # (Auto) 0.50 (0.00-0.90) K/UL Eos # (Auto) 0.08 (0.00-0.50) K/uL Baso # (Auto) 0.02 (0.00-0.30) K/uL Abs Immat Gran (auto) 0.02 (0.00-0.30) K/uL Imm/Tot Granulo (auto) 0.2 % Sodium 138 (135-149) mmol/L Potassium 4.0 (3.6-5.1) mmol/L Chloride 107 (96-114) mmol/L Carbon Dioxide 23 (20-32) mmol/L Anion Gap 8 (7-15) mEq/L BUN 14 (5-24) mg/dL Creatinine 0.5 (0.5-1.5) mg/dL Estimated Creat Clear 142.81 Estimated GFR 123 ml/min Glucose 130 H (60-115) mg/dL Lactate 1.0 (0.5-1.9) mmol/L Calcium 9.1 (8.4-10.6) mg/dL Total Bilirubin 0.6 (0.1-1.5) mg/dL Direct Bilirubin 0.2 (0.0-0.5) mg/dL AST 27 (12-35) U/L ALT 23 (4-35) U/L Alkaline Phosphatase 47 (40-150) U/L C-Reactive Protein < 0.5 L (0.5-1.0) mg/dL Total Protein 7.5 (6.0-8.3) g/dL Albumin 4.5 (3.3-5.0) g/dL Urine Color Yellow (Yellow) Urine Appearance Slightly Cloudy A (Clear) Urine pH 6.0 (5.0-8.5) Ur Specific [place] 1.025 (1.000-1.030) Urine Protein 1+ A (Negative) Urine Glucose (UA) Negative (Negative) Urine Ketones Negative (Negative) Urine Blood 3+ A (Negative) Urine Nitrite Negative (Negative) Urine Bilirubin Negative (Negative) Urine Urobilinogen 0.2 (0.2-1.0) Ur Leukocyte Esterase 1+ A (Negative) Urine RBC 5-10 A (0-2) Urine WBC 5-10 A (0-5) Ur Squamous Epith Cells Few (None-Few) Urine Bacteria Few A (None) Urine Yeast Few A (None) Urine HCG, Qual Negative (Negative) <Benjamin Bradshaw MD - Last Filed: 05/05/23 22:39> Discharge Plan Discharge Clinical Impression: Kidney calculi <Maggi Mata MD - Last Filed: 05/05/23 20:04> Patient Disposition: Home, Self-Care <Maggi Mata MD - Last Filed: 05/05/23 20:04> Condition: Stable <Maggi Mata MD - Last Filed: 05/05/23 20:04> Instructions: Kidney Stones (ED) <Maggi Mata MD - Last Filed: 05/05/23 20:04> Additional Instructions: Plenty of fluids Flomax at your pharmacy Continue your pain medicine Follow-up with your doctor this week. <Maggi Mata MD - Last Filed: 05/05/23 20:04> Activity Level: No Restrictions <Maggi Mata MD - Last Filed: 05/05/23 20:04> No Restrictions <Benjamin Bradshaw MD - Last Filed: 05/05/23 22:39> Discharge Diet: Regular <Maggi Mata MD - Last Filed: 05/05/23 20:04> Regular <Benjamin Bradshaw MD - Last Filed: 05/05/23 22:39> Prescriptions: New tamsulosin [Flomax] 0.4 mg capsule 0.4 mg PO DAILY Qty: 30 3RF No Action tramadol 50 mg tablet 50 mg PO Q6H morphine 15 mg tablet extended release 15 mg PO Q8H metformin 1,000 mg tablet 1,000 mg PO BID lisinopril 2.5 mg tablet 2.5 mg PO DAILY Victoza 2-Marc 0.6 mg/0.1 mL (18 mg/3 mL) pen injector 0.6 mg subcut DAILY <Maggi Mata MD - Last Filed: 05/05/23 20:04> Follow Up/Referrals: Provider,Not a Local [Primary Care Provider] - <Maggi Mata MD - Last Filed: 05/05/23 20:04> Stand Alone Forms: MyHealth Info Instructions <Maggi Mata MD - Last Filed: 05/05/23 20:04>
[2023-05-05 19:44] LABS: Basophils Absolute Auto 0.02 K/uL (0.00-0.30); Basophils Percent Auto 0.2 % (0.0-3.0); Eosinophils Absolute Auto 0.08 K/uL (0.00-0.50); Eosinophils Percent Auto 0.8 % (0.0-7.0); Hematocrit 42.6 % (33.0-51.0); Hemoglobin* 14.2 gm/dL (12.0-16.0); Immature Granulocytes Abs Auto 0.02 K/uL (0.00-0.30); Immature Granulocytes Pct Auto 0.2 %; Lymphocytes Percent Auto 12.1 % (20-44); Mean Corpuscular HGB Conc 33 gm/dL (32-36); Mean Corpuscular Hemoglobin 29 pg (26-34); Mean Corpuscular Volume 88 fL (80-100); Monocytes Percent Auto 4.9 % (0.0-11.0); Neutrophils Percent Auto 81.8 % (42.0-72.0); Platelet Count* 221 K/uL (140-440); RDW Coefficient of Variation % 13.1 % (11.5-15.5); Red Blood Count 4.85 m/uL (4.00-5.20); White Blood Count* 9.78 K/uL (4.50-11.00)
[2023-05-05 19:45] LABS: Slide Review Reflex No
[2023-05-05] MEDS: 0.9 % SODIUM CHLORIDE 1000 ml 1,000 ML IV (19:48)
[2023-05-05] MEDS: KETOROLAC 30 MG/ML inj IVP (19:50)
[2023-05-05] MEDS: ONDANSETRON 2 MG/ML inj 4 MG IVP (19:50)
[2023-05-05 20:06] LABS: Albumin* 4.5 g/dL (3.3-5.0); Chloride* 107 mmol/L (96-114); Sodium* 138 mmol/L (135-149)
[2023-05-05 20:09] LABS: Anion Gap 8 mEq/L (7-15); Aspartate Amino Transferase* 27 U/L (12-35); Bilirubin Direct* 0.2 mg/dL (0.0-0.5); Bilirubin Total* 0.6 mg/dL (0.1-1.5); Carbon Dioxide* 23 mmol/L (20-32); Creatinine* 0.5 mg/dL (0.5-1.5); Est. Creatinine Clearance* 142.81; Estimated Glomerular Filt Rate 123 ml/min; Total Protein* 7.5 g/dL (6.0-8.3)
[2023-05-05 20:10] LABS: Alanine Aminotransferase* 23 U/L (4-35); Alkaline Phosphatase* 47 U/L (40-150); Blood Urea Nitrogen* 14 mg/dL (5-24); Calcium* 9.1 mg/dL (8.4-10.6); Glucose* 130 mg/dL (60-115)
[2023-05-05 20:14] LABS: C Reactive Protein* < 0.5 mg/dL (0.5-1.0)
[2023-05-05 20:22] LABS: Bilirubin Urine Negative (Negative); Blood Urine 3+ (Negative); Glucose Urine Negative (Negative); Ketones Urine Negative (Negative); Leukocyte Esterase Urine 1+ (Negative); Nitrite Urine Negative (Negative); Protein Urine 1+ (Negative); Specific Gravity Urine 1.025 (1.000-1.030); Urobilinogen Urine 0.2 (0.2-1.0)
[2023-05-05 20:25] LABS: Ur HCG Qualitative* Negative (Negative)
[2023-05-05 20:35] LABS: Appearance Urine Slightly Cloudy (Clear); Color Urine Yellow (Yellow)
[2023-05-05 21:10] LABS: Bacteria Urine Few; Squamous Epithelial Cell Urine Few (None-Few)
== END 2023-05-05 23:01 | disposition home or self-care (01) ==
PROVIDERS: Emergency Provider Family Medicine
DX: N20.0 Calculus of kidney (principal)
CPT/HCPCS: 36415; 74176; 80048; 80076; 81001; 81025; 83605; 85025; 86140; 87086; 96374; 96375; 99283; 99284; J1885; J2405; J7030

== ENCOUNTER 2024-04-17 08:30 | Outpatient (RCR) | payer MEDICAID, SELFPAY | END 2024-08-15 23:59 | disposition home or self-care (01) | PROVIDERS: PCP Physical Medicine & Rehabilitation; Visit Provider Physical Medicine & Rehabilitation | DX: M47.26 Other spondylosis with radiculopathy, lumbar region (principal); Z51.89 Encounter for other specified aftercare | CPT/HCPCS: 97110; 97140; 97162 ==